=== PATIENT | female | born 1990 | race African-American/Black ===

== ENCOUNTER 2016-12-15 16:59 | Emergency (ER) | payer SELFPAY ==
[~2016-12-15] VITALS: Ht 165.1 cm; Wt 51.0 kg
[~2016-12-15 16:59] MED LIST: PENI500T
[2016-12-15] MEDS ORDERED: KETOROLAC 60MG/2ML VIAL IM ONE (18:45)
[2016-12-15 19:54] VITALS: BP 121/77
== END 2016-12-15 21:07 | disposition home or self-care (01) ==
LOC: ER 17:00
DX: S46.911A Strain of unspecified muscle, fascia and tendon at shoulder and upper arm level, right arm, initial encounter (principal); X58.XXXA Exposure to other specified factors, initial encounter; Y93.89 Activity, other specified; Y92.89 Other specified places as the place of occurrence of the external cause; Z88.5 Allergy status to narcotic agent; Z72.0 Tobacco use
CPT/HCPCS: 73030; 81025; 96372; 99284; J1885; A4565

== ENCOUNTER 2017-04-17 12:01 | Emergency (ER) | payer MEDICAID ==
[~2017-04-17] VITALS: Ht 152.4 cm; Wt 49.0 kg
[2017-04-17] MEDS ORDERED: IBUPROFEN 600MG TABLET PO ONE (14:45)
[2017-04-17 16:23] VITALS: BP 110/75
== END 2017-04-17 16:55 | disposition home or self-care (01) ==
LOC: ER 13:12
DX: S90.31XA Contusion of right foot, initial encounter (principal); F17.200 Nicotine dependence, unspecified, uncomplicated; Z88.5 Allergy status to narcotic agent; W19.XXXA Unspecified fall, initial encounter; Y93.51 Activity, roller skating (inline) and skateboarding; Y92.89 Other specified places as the place of occurrence of the external cause; Y99.8 Other external cause status
CPT/HCPCS: 73630; 81025; 99284; Z7610

== ENCOUNTER 2017-09-27 23:27 | Emergency (ER) | payer MEDICAID ==
[~2017-09-27] VITALS: Ht 157.5 cm; Wt 49.0 kg
[2017-09-28] MEDS ORDERED: ACETAMINOPHEN 325MG TABLET PO ONE (00:15)
[2017-09-28] MEDS ORDERED: IBUPROFEN 400MG TABLET PO ONE (00:15)
[2017-09-28] MEDS ORDERED: KETOROLAC 15MG/ML VIAL IM ONE (00:45)
[2017-09-28] MEDS ORDERED: FAMOTIDINE 20MG TABLET PO ONE (05:15)
[2017-09-28 06:00] VITALS: BP 115/75
== END 2017-09-28 06:40 | disposition home or self-care (01) ==
LOC: ER 23:27
DX: S09.8XXA Other specified injuries of head, initial encounter (principal); R07.89 Other chest pain; F17.200 Nicotine dependence, unspecified, uncomplicated; Y04.0XXA Assault by unarmed brawl or fight, initial encounter; Y92.89 Other specified places as the place of occurrence of the external cause
CPT/HCPCS: 70450; 71250; 96372; 99284; J1885; Z7610

== ENCOUNTER 2018-03-18 21:47 | Emergency (ER) | payer MEDICAID ==
[~2018-03-18] VITALS: Ht 157.5 cm; Wt 50.0 kg
[2018-03-18] MEDS ORDERED: IBUPROFEN 600MG TABLET PO ONE (23:30)
[2018-03-18] MEDS ORDERED: KETOROLAC 30MG/ML VIAL IV ONE (23:45)
[2018-03-18 23:54] VITALS: BP 123/84
[2018-03-19 00:33] LABS: BASOPHILS % 0.5 % (0.0-2.0); EOSINOPHILS % 2.2 % (0.0-5.0); HEMATOCRIT. 38.4 % (36.0-48.0); HEMOGLOBIN. 12.9 g/dL (12.0-16.0); LYMPHOCYTES % 55.3 % (20.0-50.0); MEAN CORPUSCULAR VOLUME 100.9 fL (81.0-99.0); MEAN PLATELET VOLUME 10.5 fl (7.4-10.4); MONOCYTES % 6.6 % (2.0-8.0); NEUTROPHILS % 35.4 % (40.0-76.0); PLATELET 135 x1000/uL (130-400); RED CELL DISTRIBUTION WIDTH 14.6 % (11.6-14.6)
[2018-03-19 00:41] LABS: CHLORIDE 112 mEq/L (98-107)
== END 2018-03-19 00:32 | disposition left against medical advice (07) ==
LOC: ER 21:47
DX: R07.89 Other chest pain (principal); R06.02 Shortness of breath
CPT/HCPCS: 36415; 71045; 80053; 81025; 85025; 93005; 96374; 99285; J1885

== ENCOUNTER 2020-01-20 10:02 | Emergency (ER) | payer MEDICAID ==
[~2020-01-20] VITALS: Ht 154.9 cm; Wt 48.0 kg
[2020-01-20 10:29] VITALS: BP 128/74
[2020-01-20] MEDS ORDERED: ACETAMINOPHEN 500MG TABLET PO ONE (12:15)
[2020-01-20] MEDS ORDERED: IBUPROFEN 800MG TABLET PO ONE (13:15)
== END 2020-01-20 14:06 | disposition home or self-care (01) ==
LOC: ER 10:02
DX: M54.5 Low back pain (principal); M62.830 Muscle spasm of back
CPT/HCPCS: 72100; 81025; 99284

== ENCOUNTER 2021-04-28 09:24 | Emergency (ER) | payer MEDICAID ==
[~2021-04-28] VITALS: Ht 154.9 cm; Wt 50.0 kg
[~2021-04-28 09:24] MED LIST changes: +ACET-2708 MT; +CEPH500C2 MT
[2021-04-28] MEDS ORDERED: KETOROLAC 60MG/2ML VIAL IM STA (11:35)
[2021-04-28] MEDS ORDERED: T3 PO (12:33)
[2021-04-28 12:59] VITALS: BP 118/92
== END 2021-04-28 13:00 | disposition home or self-care (01) ==
LOC: ER 09:24
DX: S02.2XXA Fracture of nasal bones, initial encounter for closed fracture (principal); Y09 Assault by unspecified means; Y93.89 Activity, other specified; Y92.89 Other specified places as the place of occurrence of the external cause; Y99.8 Other external cause status; Z79.899 Other long term (current) drug therapy
CPT/HCPCS: 70486; 81025; 96372; 99284; J1885

== ENCOUNTER 2021-05-10 15:21 | Emergency (ER) | payer MEDICAID ==
[~2021-05-10] VITALS: Ht 162.6 cm; Wt 66.0 kg
[~2021-05-10 15:21] MED LIST changes: +T3 PO
[2021-05-10] MEDS ORDERED: KETOROLAC 60MG/2ML VIAL IM ONE (16:00)
[2021-05-10] MEDS ORDERED: IBUP-2029 MT (17:46)
[2021-05-10] MEDS ORDERED: CYCL10TA7 MT (17:47)
[2021-05-10 18:10] VITALS: BP 112/86
== END 2021-05-10 18:11 | disposition home or self-care (01) ==
LOC: ER 15:21
DX: S10.93XA Contusion of unspecified part of neck, initial encounter (principal); Z79.899 Other long term (current) drug therapy; V49.9XXA Car occupant (driver) (passenger) injured in unspecified traffic accident, initial encounter; Y93.89 Activity, other specified; Y92.89 Other specified places as the place of occurrence of the external cause; Y99.8 Other external cause status
CPT/HCPCS: 70450; 72100; 72125; 96372; 99285; J1885

== ENCOUNTER 2022-03-22 19:41 | Emergency (ER) | payer MEDICAID ==
[~2022-03-22] VITALS: Ht 172.7 cm; Wt 61.0 kg
[~2022-03-22 19:41] MED LIST changes: +CYCL10TA21 MT; +IBUP-2029 MT
[2022-03-22] MEDS ORDERED: SODIUM CHLORIDE 0.9% 1,000 ML IV ONE (20:00)
[2022-03-22 20:55] LABS: BASOPHILS % 0.3 % (0.0-2.0); EOSINOPHILS % 0.1 % (0.0-5.0); HEMATOCRIT. 38.8 % (36.0-48.0); HEMOGLOBIN. 13.2 g/dL (12.0-16.0); MEAN CORPUSCULAR HEMOGLOBIN 36.9 pg (28.0-32.0); MEAN CORPUSCULAR VOLUME 108.6 fL (81.0-99.0); MEAN PLATELET VOLUME 9.2 fl (7.4-10.4); MONOCYTES % 5.3 % (2.0-8.0); NEUTROPHILS % 80.3 % (40.0-76.0); PLATELET 165 x1000/uL (130-400); RED BLOOD CELL COUNT 3.57 mill/uL (4.2-5.4); RED CELL DISTRIBUTION WIDTH 14.2 % (11.6-14.6)
[2022-03-22 21:00] LABS: CHLORIDE 109 mEq/L (98-107)
[2022-03-22 21:01] LABS: HCG SCREEN NEGATIVE
[2022-03-22 21:08] LABS: ETHANOL BLOOD 37 mg/dL
[2022-03-22 22:26] LABS: CLARITY URINE CLEAR (CLEAR); COLOR URINE YELLOW (YELLOW); KETONES URINE 2+ (NEGATIVE); LEUKOCYTE ESTERASE URINE NEGATIVE (NEGATIVE); NITRITE URINE NEGATIVE (NEGATIVE); OCCULT BLOOD URINE NEGATIVE (NEGATIVE); PH URINE 5.5 (4.5-8.0); PROTEIN URINE NEGATIVE (NEGATIVE); SPECIFIC GRAVITY URINE 1.019 (1.005-1.030); UROBILINOGEN URINE 0.2 E.U./dL (0.2-1.0)
[2022-03-22 22:37] LABS: *AMPHETAMINES SCREEN URINE NEGATIVE (NEGATIVE); *BARBITURATES SCREEN URINE NEGATIVE (NEGATIVE); *BENZODIAZEPINES SCREEN URINE NEGATIVE (NEGATIVE); *COCAINE SCREEN URINE NEGATIVE (NEGATIVE); METHADONE URINE SCREEN NEGATIVE (NEGATIVE); OPIATES URINE SCREEN NEGATIVE (NEGATIVE); PHENCYCLIDINE URINE SCREEN NEGATIVE (NEGATIVE)
[2022-03-22 22:38] LABS: CANNABINOID URINE SCREEN PRESUMTIVE POSITIVE (NEGATIVE)
[2022-03-22 22:42] VITALS: BP 109/80
== END 2022-03-22 23:16 | disposition home or self-care (01) ==
LOC: ER 19:41
DX: E16.2 Hypoglycemia, unspecified (principal); I10 Essential (primary) hypertension
CPT/HCPCS: 36415; 80053; 80305; 80320; 81003; 82962; 84703; 85025; 93005; 96360; 99284; J7030; G0480